=== PATIENT | female | born 1975 | race Caucasian/White ===

== ENCOUNTER 2023-02-15 18:17 | Emergency (ER) | payer OTHER, SELFPAY ==
[2023-02-15 18:22] VITALS: BP 135/93; PULSE 127; RESP 14; TEMP 36.7; O2SAT 100
[2023-02-15] MEDS: LORazepam 2 MG/ML VIAL 1 MG IM (19:31)
[2023-02-15] MEDS: Bupivacaine 0.5% Pres-Free 30 ML VIAL IJ (19:45)
--- NOTE | 2023-02-15 19:52 | DI.RAD_ITS ---
Exam(s) XR THUMB LT EXAM: XR THUMB LT EXAM DATE/TIME: CLINICAL HISTORY: dog bite. TECHNIQUE: 2D digital imaging was performed of the left finger. Three views were obtained. PA/AP, oblique, and lateral views were obtained. COMPARISON: None. FINDINGS: BONES: There is an acute nondisplaced fracture through the diaphysis of the distal phalanx of the karla mb. There is also a fracture of the terminal tuft which is displaced 7 mm. No bony destructive lesi on is seen. JOINTS: No dislocation is present. The joint spaces are well maintained. SOFT TISSUE: There is soft tissue swelling of the thumb and a laceration at the tip of the thumb. IMPRESSION: Fractures involving the distal phalanx of the thumb in 2 places as described above. DATA REPOSITORY: RADIATION DOSE DELIVERED:
[2023-02-15] MEDS: metroNIDAZOLE 500 MG TAB PO ×2 (20:15→21:55)
--- NOTE | 2023-02-15 20:17 | NUR.NOTE ---
Spoke to Nima Young, the [facility] office and faxed the animal bite report to him.Nursing Note:
--- NOTE | 2023-02-15 20:22 | DI.VRAD_ITS ---
PROCEDURE INFORMATION: Exam: XR Left Finger(s) Exam date and time: 02/15/2023 20:05 Age: 47 years old Clinical indication: Injury or trauma; Other: Dog bite; Finger; Thumb; Left; Injury date: 02/15/23 TECHNIQUE: Imaging protocol: Radiologic exam of the left fingers. Views: Minimum 2 views. COMPARISON: No relevant prior studies available. FINDINGS: Bones/joints: Fracture of the 1st distal phalanx in 2 locations. There is a diaphyseal fracture without significant distraction. Fracture of the tuft with 7 mm distal distraction. Soft tissues: For surgical swelling with distal soft tissue defect. IMPRESSION: Fracture of the 1st distal phalanx in 2 locations. Details as above. Dictated and Authenticated by: Jenise Hardy MD. Ordering:LONA Henao MD
[2023-02-15] MEDS: Cefuroxime 500 MG TAB PO ×2 (20:49→21:55)
--- NOTE | 2023-02-15 21:37 | W.ED.GENAD ---
Discharge Plan Disposition Patient Disposition: Home Discharge Details Clinical Impression: Open finger fracture, Dog bite Primary Care Provider: Juan Dewitt ED Provider: Earlene Gupta Home Meds and New Rx's Prescriptions: New cefuroxime axetil 500 mg tablet 500 mg PO BID Qty: 20 0RF metronidazole 500 mg tablet 500 mg PO TID Qty: 30 0RF Continued multivitamin [Daily Multi-Vitamin] 1 EACH tablet 1 tab PO DAILY Discharge Instructions Instructions: Animal Bite (ED), Finger Fracture (ED) Additional Instructions: Keep wound clean and dry, keep dressing in place until you are reevaluated in the next 48 to 72 hours Make sure you take the antibiotics as prescribed Yogurt daily while on the antibiotic Take ibuprofen and Tylenol as needed for pain You have been given several tablets of oxycodone, know that this is addictive and use sparingly Please call [facility] hand surgery tomorrow, we have also placed a referral, this is very important that he have close outpatient follow-up [phone] Referrals: Juan Dewitt MD [Primary Care Provider] - Medical Decision Making Patient with 1 inch laceration to left thumb into pad, diminished sensation to distal thumb This is a dog bite Per virtual radiology interpretation and my review, x-ray was read as positive for fracture at distal phalanx Case was discussed with Dr. Miles, on-call orthopedist given complexity of open fracture and he recommends hand surgery at [facility], patient was placed on care management list for urgent outpatient follow-up with [facility] hand surgery Started on cefuroxime and Flagyl secondary to penicillin allergy Tetanus was updated Loosely approximated, unfortunately nail has completely been removed from the nail fold so I did place Xeroform in the nail fold and attempt to maintain patency Given several tablets of oxycodone for pain Return precautions reviewed and patient expressed understanding She is aware that she needs to be reevaluated within the next 48 to 72 hours She will continue on the antibiotics Large dressing was applied for protection Medical Records Medical records reviewed: Yes I reviewed the patient's medical records. Lab Data Lab results reviewed: Yes I reviewed the patient's lab results. HPI General Date/Time Provider Initiated Documentation: 02/15/23 19:17. HPI Narrative: This 47-year-old female who is otherwise healthy presents with report of dog bite to left thumb, she attempted to break up a fight between her 2 dogs. She denies any additional injuries. She states her tetanus is not up-to-date. She states the dogs are up-to-date on their rabies vaccines Event occurred just prior to arrival. Related Data Home Medications Medication Instructions Recorded Confirmed multivitamin (Daily Multi-Vitamin 1 tab PO DAILY 09/15/15 02/15/23 tablet) cefuroxime axetil 500 mg tablet 500 mg PO BID #20 tabs 02/15/23 metronidazole 500 mg tablet 500 mg PO TID #30 tabs 02/15/23 Previous Rx's Medication Instructions Recorded cefuroxime axetil 500 mg tablet 500 mg PO BID #20 tabs 02/15/23 metronidazole 500 mg tablet 500 mg PO TID #30 tabs 02/15/23 Allergies Allergy/AdvReac Type Severity Reaction Status Date / Time metoclopramide HCl AdvReac Severe Psychosis Unverified 02/15/23 18:27 [From Reglan] Penicillins AdvReac Unknown unknown Unverified 02/15/23 18:27 General Stated Complaint: Laceration BRITTANY: 4 PFSH All Active Problems (Updated 02/15/23 @ 21:41 by CHRIS Browne) Open finger fracture (Acute) Dog bite (Acute) Social History Smoking/Tobacco Use Status: Never Smoking risk assessment performed?: Yes Alcohol Intake: current Alcohol Intake frequency: holidays/special occasions only Alcohol type: hard liquor Drug use: Never Do you feel safe at home: Yes Course Vital Signs Vital signs: Vital Signs Temperature 36.7 C 02/15/23 18:22 Pulse 127 H 02/15/23 18:22 Respiratory Rate 14 02/15/23 18:22 Blood Pressure 135/93 H 02/15/23 18:22 Pulse Oximetry 100 02/15/23 18:22 Temperature 36.7 C 02/15/23 18:22 Temperature Source Temporal Artery Scan 02/15/23 18:22 Pulse 127 H 02/15/23 18:22 Respiratory Rate 14 02/15/23 18:22 Respiratory Effort Normal, Non-Labored 02/15/23 18:27 Blood Pressure 135/93 H 02/15/23 18:22 Blood Pressure Position Sitting 02/15/23 18:22 Pulse Oximetry 100 02/15/23 18:22 Oxygen Delivery Method Room Air 06/04/23 18:22 Oxygen Flow Rate 0 02/15/23 18:22 Pain Level 7 02/15/23 18:22 Procedures Laceration Laceration 1: Site: hand Side (If applicable): left Size (cm): 2.5 Description: irregular Local Anesthetic: Bupivicaine 0.25% Amount of anesthesia used (mL): 3 Pre-repair: wound explored, irrigated extensively and wound margins revised Skin layer closed with: nylon and other Number of sutures: 6 Technique: simple, interrupted PAWSS Have you Been Recently Intoxicated or Drunk Within the Last 30 days?: Yes Have you Ever Experienced Previous Episodes of Alcohol Withdrawal?: No Have you ever Experienced Withdrawal Seizures?: No Have you ever Experienced Delirium Tremens(DT)s?: No Have you ever undergone Alcohol Rehabilitation Treatment (i.e, inpt ot outpatient treatment programs)?: No Have you ever Experienced Blackouts?: No Have you ever Combined Alcohol with other Downers within the last 90 days?: No Have you ever Combined Alcohol with any other Substance of Abuse during the last 90 days?: No Positive Blood Alcohol level on Presentation? [PCS.BAL]: No Evidence of Increased Autonomic Activity (i.e. HR>120, tremor, sweating, agitation, nausea)?: No Result: 1
--- NOTE | 2023-02-16 02:53 | NUR.NOTE ---
REferral made per Earlene Gupta to [facility] this week PAM as this is an urgent referral. Put the referral in the pharmacist critical care's box for f/u assistance.Nursing Note:
== END 2023-02-15 22:08 | disposition home or self-care (01) ==
PROVIDERS: Emergency Provider Physician Assistant; PCP Family Medicine
DX: S61.152A Open bite of left thumb with damage to nail, initial encounter (principal); S62.522A Displaced fracture of distal phalanx of left thumb, initial encounter for closed fracture; W54.0XXA Bitten by dog, initial encounter
CPT/HCPCS: 12001; 90471; 96372; 99284; 73140; J2060

== ENCOUNTER 2025-07-26 13:57 | Outpatient (REF) | payer BC, SELFPAY ==
[2025-07-26 21:21] LABS: RBC >50 HPF (0-2); WBC >50 HPF (0-5)
== END 2025-07-26 13:58 | disposition home or self-care (01) ==
LOC: LBN 13:57
PROVIDERS: PCP Family Medicine; Visit Provider Physician Assistant Medical
DX: R30.0 Dysuria (principal)
CPT/HCPCS: 81015; 87086